=== PATIENT | male | born 1985 | race Caucasian/White ===

== ENCOUNTER 2023-08-12 13:38 | Emergency (ER) | payer OTHER ==
[~2023-08-12] VITALS: Ht 177.8 cm; Wt 83.0 kg
[2023-08-12 13:49] VITALS: BP 116/76; PULSE 71; RESP 20; TEMP 98.4; O2SAT 97
[2023-08-12] MEDS ORDERED: AMOX1TAB16 MT (14:56)
[2023-08-12] MEDS: TETANUS, DIPHTHERIA, PERTUSSIS VAC/PF 0.5ML (>10YR OLD) IM ONE (15:24)
== END 2023-08-12 15:26 | disposition home or self-care (01) ==
LOC: ER 13:38
DX: S80.812A Abrasion, left lower leg, initial encounter (principal); W54.0XXA Bitten by dog, initial encounter; Y93.89 Activity, other specified; Y92.89 Other specified places as the place of occurrence of the external cause; Y99.8 Other external cause status
CPT/HCPCS: 73590; 90715; 90471; 99283; Z7610